=== PATIENT | male | born 1935 | race Asian ===

== ENCOUNTER 2018-02-19 11:38 | Day surgery (SDC) | payer MEDICARE, OTHER, MEDICAID ==
[~2018-02-19 11:38] MED LIST: CLINDAMYCIN 900 MG/50 ML D5W IVPB IVPB; LIDOCAINE 2% (SDV) 5 ML INJ; ROCURONIUM 50 MG INJ
[2018-02-19] MEDS: LACTATED RINGER'S 1,000 ML IV (13:06)
[2018-02-19] MEDS ORDERED: PROPOFOL 20 ML (13:57)
[2018-02-19] MEDS ORDERED: ROCURONIUM 50 MG INJ (13:58)
[2018-02-19] MEDS ORDERED: DEXAMETHASONE 4 MG/ML 1 ML INJ (14:24)
[2018-02-19] MEDS ORDERED: FENTAnyl 50 MCG/ML VIAL IV ×3 (14:30)
[2018-02-19] MEDS ORDERED: KETOROLAC 30 MG INJ IV (14:30)
[2018-02-19] MEDS ORDERED: ALBUTEROL 0.083% (NEB) 2.5 MG/3 ML AMP HHN (14:30)
[2018-02-19] MEDS ORDERED: MIDAZOLAM 1 MG/ML 2 ML INJ IV (14:30)
[2018-02-19] MEDS ORDERED: EPHEDrine SULFATE 50 MG/5 ML SYG IV (14:30)
[2018-02-19] MEDS ORDERED: MEPERIDINE 25 MG INJ IV (14:30)
[2018-02-19] MEDS ORDERED: OXYCODONE/ACETAMINOPHEN (5/325) TAB PO ×2 (14:30)
[2018-02-19] MEDS ORDERED: METOCLOPRAMIDE 10 MG INJ IV (14:30)
[2018-02-19] MEDS ORDERED: DIPHENHYDRAMINE 50 MG INJ IV (14:30)
[2018-02-19] MEDS ORDERED: HYDROmorphONE 1 MG/5 ML IV SYRINGE IV ×3 (14:30)
[2018-02-19] MEDS ORDERED: LABETALOL HCL 20MG INJ IV (14:30)
[2018-02-19] MEDS: LIDOCAINE 1% (MDV) 20 ML INJ (14:35)
[2018-02-19] MEDS: BUPIVACAINE 0.25%/EPI (SDV) 30 ML INJ (14:35)
[2018-02-19] MEDS: POLYMYXIN/BACITRACIN 1L IRRIG (14:43)
[2018-02-19] MEDS ORDERED: PHENYLephrine (100 MCG/ML) 5ML SYG (14:44)
[2018-02-19] MEDS ORDERED: ONDANSETRON 4 MG INJ (14:45)
[2018-02-19] MEDS ORDERED: ONDANSETRON 4 MG INJ IV (16:00)
[2018-02-19] MEDS ORDERED: HYDROCODONE/APAP (5/325) TAB PO ×2 (16:00)
[2018-02-19] MEDS ORDERED: morphine 10 MG INJ IM (16:00)
[2018-02-19] MEDS: hydrALAzine 20 MG INJ IV (16:07)
[2018-02-19] MEDS: ONDANSETRON 4 MG INJ IV (16:07)
[2018-02-19] MEDS ORDERED: KETOROLAC 30 MG INJ (16:17)
[2018-02-19] MEDS ORDERED: SUGAMMADEX SODIUM 200 MG/2 ML VIAL IV (16:17)
== END 2018-02-19 17:30 | disposition home or self-care (01) ==
LOC: SDS 17:30
DX: K40.90 Unilateral inguinal hernia, without obstruction or gangrene, not specified as recurrent (principal); I12.9 Hypertensive chronic kidney disease with stage 1 through stage 4 chronic kidney disease, or unspecified chronic kidney disease; N18.3 Chronic kidney disease, stage 3 (moderate); E78.5 Hyperlipidemia, unspecified
CPT/HCPCS: 49505